=== PATIENT | female | born 1990 | race African-American/Black ===

== ENCOUNTER 2016-03-02 09:08 | Emergency (ER) | payer OTHER ==
[~2016-03-02] VITALS: Ht 162.6 cm; Wt 54.4 kg
[~2016-03-02 09:08] MED LIST: DEPO-PROVERA
[2016-03-02] MEDS ORDERED: NOHOMEMEDICATIONS (09:22)
[2016-03-02 09:37] LABS: ABSOLUTE NEUTROPHILS 4.8 thou/uL (1.4-8.2); BASOPHILS 0.4 % (0.0-2.0); EOSINOPHILS 0.1 % (0.0-3.0); HEMATOCRIT 40.5 % (37.0-47.0); HEMOGLOBIN 13.7 gm/dL (12.0-15.0); LYMPHOCYTES 11.3 % (24.0-44.0); MCH 30.9 pg (26.0-34.0); MCHC 33.8 % (28.0-37.0); MCV 91.5 fL (80.0-100.0); MONOCYTES 4.6 % (1.0-8.0); PLATELET COUNT 138 thou/uL (150-400); POLYS 83.6 % (36.0-66.0); RBC 4.43 mil/uL (4.20-5.00); RDW 13.6 % (10.5-14.5); WBC 5.7 thou/uL (4.0-11.0)
[2016-03-02 09:42] LABS: CALCIUM 8.6 mg/dL (8.5-10.1); MANUAL DIFF NO; POTASSIUM 3.6 mmol/L (3.5-5.1)
[2016-03-02 09:45] LABS: URINE BILIRUBIN NEGATIVE (Negative); URINE BLOOD TRACE (Negative); URINE COLOR YELLOW; URINE GLUCOSE-RANDOM* NEGATIVE (Negative); URINE KETONES 1+ (Negative); URINE LEUKOCYTES-REFLEX NEGATIVE (Negative); URINE PROTEIN (DIPSTICK) TRACE (Negative); URINE SPECIFIC GRAVITY 1.025 (1.003-1.035)
[2016-03-02] MEDS ORDERED: ONDANSETRON HCL4 M2 PO (10:31)
[2016-03-02 10:38] VITALS: BP 112/69
== END 2016-03-02 10:39 | disposition home or self-care (01) ==
LOC: ER 09:08
PROVIDERS: Physician Assistant
DX: R11.2 Nausea with vomiting, unspecified (principal); R10.13 Epigastric pain; F17.210 Nicotine dependence, cigarettes, uncomplicated